=== PATIENT | female | born 2000 | race Hispanic/Latino ===

== ENCOUNTER 2019-11-24 05:48 | Emergency (ER) | payer SELFPAY ==
[~2019-11-24] VITALS: Ht 154.9 cm; Wt 54.4 kg
[2019-11-24] MEDS ORDERED: FAMOTIDINE 20 MG/2 ML VIAL IV STA (06:06)
--- NOTE | 2019-11-24 06:13 | Emergency Department Note ---
History of Present Illnes History of Present Illness Chief Complaint: Skin Rash or Abscess History of Present Illness This is a 19 year old female Chief Complaint Comment RASH ALL OVER BODY X2HRS. RED/ITCHY WITH SOME WELTS. NO RESP DISTRESS . Historian: Patient Arrival Mode: Car Onset (how long ago): day(s) (1) Location: generalized Quality: itching Radiation: Denies non-radiation, Denies back, Denies neck, Denies extremity, Denies abdomen, Denies periumbilical, Denies flank, Denies proximal, Denies distal, Denies other Severity: mild Onset quality: sudden Duration (how long): day(s) (1) Timing of current episode: constant Progression: unchanged Chronicity: new Context: Denies recent illness, Denies recent surgery, Denies recent immobilization, Denies recent travel, Denies trauma/injury, Denies new medications, Denies hx of DVT/PE, Denies non-compliance w/ medications, Denies other Relieving factors: none Exacerbating factors: none Associated symptoms: Denies denies other symptoms, Denies confusion, Denies chest pain, Denies cough, Denies diaphoresis, Denies fever/chills, Denies headaches, Denies loss of appetite, Denies malaise, Denies nausea/vomiting, Denies rash, Denies seizure, Denies shortness of breath, Denies syncope, Denies weakness, Denies other Treatments prior to arrival: none Past Medical/Family History Physician Review I have reviewed the patient's past medical and family history. Any updates have been documented here. Past Medical History Recent Fever: No Clinical Suspicion of Infectio: No New/Unexplained Change in Ment: No Past Medical History: Anemia Past Surgical History: None Social History Smoking Cessation: Never Smoker Alcohol Use: None Any Illegal Drug Use: No Physically hurt or threatened: No Other Any Pre-Existing Lines (PICC,: No Review of Systems Review of Systems Constitutional: Reports no symptoms EENTM: Reports no symptoms Cardiovascular: Reports no symptoms Respiratory: Reports no symptoms Gastrointestinal: Reports no symptoms Genitourinary: Reports no symptoms Musculoskeletal: Reports no symptoms Integumentary: Reports as per HPI Neurological: Reports no symptoms Psychological: Reports no symptoms Endocrine: Reports no symptoms Hematological/Lymphatic: Reports no symptoms Physical Exam Related Data Allergies: Coded Allergies: No Known Drug Allergies (Verified Allergy, Unknown, 11/24/19) Triage Vital Signs Vital Signs Date Time Temp Pulse Resp B/P (MAP) Pulse Ox O2 Delivery O2 Flow Rate FiO2 11/24/19 05:55 98.7 95 18 113/71 100 Room Air Vital signs reviewed: Yes Physical Exam CONSTITUTIONAL Constitutional: Present well-developed, Present well-nourished HENT HENT: Present normocephalic, Present atraumatic, Present oropharynx clear/moist, Present nose normal HENT L/R: Present left ext ear normal, Present right ext ear normal EYES Eyes: Reports PERRL, Reports conjunctivae normal NECK Neck: Present ROM normal PULMONARY Pulmonary: Present effort normal, Present breath sounds normal CARDIOVASCULAR Cardiovascular: Present regular rhythm, Present heart sounds normal, Present capillary refill normal, Present normal rate GASTROINTESTINAL Abdominal: Present soft, Present nontender, Present bowel sounds normal GENITOURINARY Genitourinary: Present exam deferred SKIN Skin: Present warm, Present dry, Present rash MUSCULOSKELETAL Musculoskeletal: Present ROM normal NEUROLOGICAL Neurological: Present alert, Present oriented x 3, Present no gross motor or sensory deficits PSYCHOLOGICAL Psychological: Present mood/affect normal, Present judgement normal Assessment & Plan Medical Decision Making MDM urticaria allergic reaction Reassessment Reassessment time: 06:11 Reassessment better Assessment & Plan Final Impression: (1) Allergic reaction (2) Urticaria Last Vital Signs Date Time Temp Pulse Resp B/P (MAP) Pulse Ox O2 Delivery O2 Flow Rate FiO2 11/24/19 05:55 98.7 95 18 113/71 100 Room Air ELISA COKER MD Nov 24, 2019 06:12
[2019-11-24] MEDS ORDERED: PREDNISONE20 MG PO (06:14)
[2019-11-24] MEDS ORDERED: METHYLPREDNISOLONE SOD SUCC 125 MG/2ML VIAL IV ONE (06:15)
[2019-11-24] MEDS ORDERED: EPINEPHRINE HCL 1:1000 1ML 1 MG/ML AMP SQ ONE (06:15)
[2019-11-24] MEDS ORDERED: EPINEPHRINE HCL 1:1000 1ML 1 MG/ML AMP ONE (06:21)
[2019-11-24] MEDS ORDERED: METHYLPREDNISOLONE SOD SUCC 125 MG/2ML VIAL ONE (06:21)
--- NOTE | 2019-11-24 06:38 | NUR ---
PT STARTED VOMITING. MD INFORMED AND REC'D PHONE ORDER FOR ZOFRAN 4MG IVP.
[2019-11-24] MEDS ORDERED: ONDANSETRON HCL INJ 2MG/ML 2ML 2 MG/ML VIAL IV STA (06:39)
--- NOTE | 2019-11-24 06:46 | NUR ---
NOTED SKIN NO LONGER RED AND WELTS GOING AWAY
[2019-11-24 07:06] VITALS: BP 100/68
== END 2019-11-24 07:10 | disposition home or self-care (01) ==
LOC: FSED 06:10
DX: L50.9 Urticaria, unspecified (principal); T78.40XA Allergy, unspecified, initial encounter; D64.9 Anemia, unspecified
CPT/HCPCS: 96372; 96374; 96376; 99283; J0171; J2405; J2930

== ENCOUNTER 2020-10-28 21:30 | Emergency (ER) | payer SELFPAY ==
[~2020-10-28] VITALS: Ht 154.9 cm; Wt 54.4 kg
[~2020-10-28 21:30] MED LIST: PREDNISONE20 MG PO
[2020-10-28] MEDS ORDERED: ULTRAM50 MG PO (23:55)
[2020-10-29] MEDS: TRAMADOL HCL 50 MG TAB PO ONE (00:05)
[2020-10-29] MEDS ORDERED: TRAMADOL HCL 50 MG TAB ONE (00:05)
== END 2020-10-29 00:32 | disposition home or self-care (01) ==
LOC: ER 22:38
DX: S62.617A Displaced fracture of proximal phalanx of left little finger, initial encounter for closed fracture (principal); W18.30XA Fall on same level, unspecified, initial encounter; Y93.01 Activity, walking, marching and hiking; D64.9 Anemia, unspecified
CPT/HCPCS: 99283